=== PATIENT | female | born 1960 | race American Indian/Alaskan Native ===

== ENCOUNTER 2018-11-18 03:44 | Emergency (ER) | payer SELFPAY | END 2018-11-18 08:22 | LOC: ED 03:44 ==

== ENCOUNTER 2021-10-23 22:08 | Emergency (ER) | payer OTHER ==
--- NOTE | 2021-10-23 23:08 | Emergency Department Report ---
ED General Adult HPI - General Chief complaint: Anxiety Stated complaint: CHILLS/COLD Time Seen by Provider: 10/23/21 23:03 Source: patient Mode of arrival: Ambulatory Limitations: No Limitations - History of Present Illness Initial comments: Patient 60-year-old female with history of anxiety and hypothyroidism who presents for chills malaise cough for the past 3 days. States symptoms worsen tonight. Patient denies wheezing there is no dizziness no chest pain no sore throat or ear pain. Patient states she is Covid vaccinated. Symptoms are exacerbated by nothing. Symptoms are relieved by nothing tried. - Related Data Allergies Allergy/AdvReac Type Severity Reaction Status Date / Time ampicillin Allergy Rash Verified 11/18/18 04:38 ED Review of Systems ROS: Stated complaint: CHILLS/COLD Other details as noted in HPI Constitutional: chills, malaise Eyes: denies: eye pain, eye discharge, vision change ENT: denies: ear pain, throat pain Respiratory: cough Cardiovascular: denies: chest pain, palpitations Endocrine: no symptoms reported Gastrointestinal: denies: abdominal pain, nausea, vomiting, diarrhea Genitourinary: denies: urgency, dysuria, discharge Musculoskeletal: denies: back pain, joint swelling, arthralgia Skin: denies: rash, lesions Neurological: denies: headache, weakness, paresthesias, vertigo Psychiatric: anxiety. denies: depression Hematological/Lymphatic: denies: easy bleeding, easy bruising ED Past Medical Hx - Past Medical History Previous Medical History?: No Hx Psychiatric Treatment: Yes (Anxiety) Additional medical history: Thyroid - Surgical History Past Surgical History?: No - Social History Smoking Status: Never Smoker Substance Use Type: Alcohol ED Physical Exam - General Limitations: No Limitations General appearance: alert, anxious - Head Head exam: Present: atraumatic, normocephalic - Eye Eye exam: Present: normal appearance, PERRL, EOMI. Absent: conjunctival injection, nystagmus Pupils: Present: normal accommodation - ENT ENT exam: Present: normal exam, normal orophraynx, mucous membranes moist, TM's normal bilaterally, normal external ear exam - Neck Neck exam: Present: normal inspection, full ROM. Absent: tenderness, meningismus, lymphadenopathy, thyromegaly - Respiratory Respiratory exam: Present: normal lung sounds bilaterally. Absent: respiratory distress, wheezes, stridor, chest wall tenderness - Cardiovascular Cardiovascular Exam: Present: regular rate, normal rhythm, normal heart sounds - GI/Abdominal GI/Abdominal exam: Present: soft, normal bowel sounds. Absent: distended, tenderness, bruit, hernia - Rectal Rectal exam: Present: deferred - Extremities Exam Extremities exam: Present: normal inspection, full ROM, normal capillary refill. Absent: tenderness - Back Exam Back exam: Present: normal inspection, full ROM. Absent: CVA tenderness (R), CVA tenderness (L) - Neurological Exam Neurological exam: Present: alert, CN II-XII intact, normal gait - Expanded Neurological Exam Expanded Patient oriented to: Present: person, place, time Speech: Present: fluid speech Motor strength exam: RUE: 5, LUE: 5, RLE: 5, LLE: 5 Best Eye Response (Lena): (4) open spontaneously Best Motor Response (Elena): (6) obeys commands Best Verbal Response (Lena): (5) oriented Elena Total: 15 - Psychiatric Psychiatric exam: Present: normal affect, normal mood - Skin Skin exam: Present: warm, dry, intact, normal color. Absent: rash ED Course Vital Signs 10/23/21 22:22 Temperature 98.1 F Pulse Rate 66 Respiratory 16 Rate Blood Pressure 136/100 [Left] O2 Sat by Pulse 97 Oximetry ED Medical Decision Making - Lab Data Result diagrams: 10/24/21 00:07 10/24/21 00:07 Labs 10/24/21 10/24/21 10/24/21 00:07 00:07 00:07 WBC 7.4 RBC 4.71 Hgb 12.3 Hct 38.9 MCV 83 MCH 26 L MCHC 32 RDW 14.5 Plt Count 197 Lymph % (Auto) 24.3 [place] % (Auto) 4.8 Eos % (Auto) 1.0 Baso % (Auto) 0.2 Lymph # (Auto) 1.8 [place] # (Auto) 0.4 Eos # (Auto) 0.1 Baso # (Auto) 0.0 Seg Neutrophils % 69.7 Seg Neutrophils # 5.2 Sodium 142 Potassium 4.2 Chloride 108.5 H Carbon Dioxide 23 Anion Gap 15 BUN 15 Creatinine 0.7 Estimated GFR > 60 BUN/Creatinine Ratio 21 Glucose 107 H Calcium 8.7 Total Bilirubin 0.30 AST 15 ALT 18 Alkaline Phosphatase 119 Total Protein 7.5 Albumin 4.2 Albumin/Globulin Ratio 1.3 TSH 1.240 - Radiology Data Radiology results: report reviewed, image reviewed XR chest routine 2V INDICATION / CLINICAL INFORMATION: cough chills. COMPARISON: None available. FINDINGS: SUPPORT DEVICES: None. HEART /PULMONARY VASCULATURE: No significant abnormality. LUNGS / PLEURA: No significant pulmonary or pleural abnormality. No pneumothorax. ADDITIONAL FINDINGS: No significant additional findings. IMPRESSION: 1. No acute findings. Signer Name: Papi Haji MD Signed: 10/23/2021 11:28 PM Workstation Name: [id number] Transcribed By: ENEDINA Dictated By: PAPI HAJI MD Electronically Authenticated By: PAPI HAJI MD Signed Date/Time: 10/23/21 7400 - Medical Decision Making Chest x-ray is normal no opacities no infiltrate. Labs are normal plan DC to home, follow-up with your primary care doctor as needed. Return to emergency should symptoms worsen. Patient verbalized agreement and understanding with discharge plan. Patient DC'd home in stable condition at this time Critical care attestation.: If time is entered above; I have spent that time in minutes in the direct care of this critically ill patient, excluding procedure time. ED Disposition Clinical Impression: Stress Disposition: 01 HOME / SELF CARE / HOMELESS Is pt being admited?: No Does the pt Need Aspirin: No Condition: Stable Additional Instructions: Take all medications as prescribed by your doctor. Follow-up with your doctor in 2 to 3 days. Return to emergency department should symptoms worsen. Referrals: MARJAN MERCEDES MD [Staff Physician] - 3-5 Days Forms: Work/School Release Form(ED) Time of Disposition: 01:12
--- NOTE | 2021-10-23 23:32 | XRay Report ---
XR chest routine 2V INDICATION / CLINICAL INFORMATION: cough chills. COMPARISON: None available. FINDINGS: SUPPORT DEVICES: None. HEART /PULMONARY VASCULATURE: No significant abnormality. LUNGS / PLEURA: No significant pulmonary or pleural abnormality. No pneumothorax. ADDITIONAL FINDINGS: No significant additional findings. IMPRESSION: 1. No acute findings. Signer Name: Dameon Kapoor MD Signed: 10/23/2021 11:28 PM Workstation Name: [id number]
[2021-10-24 00:36] LABS: Basophils % (Auto) 0.2 % (0.0-1.8); Eosinophils # (Auto) 0.1 K/mm3 (0.0-0.4); Hematocrit 38.9 % (30.3-42.9); Hemoglobin 12.3 gm/dl (10.1-14.3); Lymphocytes # (Auto) 1.8 K/mm3 (1.2-5.4); Lymphocytes % (Auto) 24.3 % (13.4-35.0); Mean Corpuscular HGB Conc 32 % (30-34); Mean Corpuscular Volume 83 fl (79-97); Monocytes # (Auto) 0.4 K/mm3 (0.0-0.8); Monocytes % (Auto) 4.8 % (0.0-7.3); Platelet Count 197 K/mm3 (140-440); Red Blood Count 4.71 M/mm3 (3.65-5.03); Red Cell Distribution Width 14.5 % (13.2-15.2)
[2021-10-24 00:49] LABS: Alanine Aminotransferase 18 units/L (7-56); Albumin 4.2 g/dL (3.9-5); Blood Urea Nitrogen 15 mg/dL (7-17); Calcium 8.7 mg/dL (8.4-10.2); Hemolysis Index 11
[2021-10-24 00:58] LABS: BUN/Creatinine Ratio 21
[2021-10-24 02:13] VITALS: BP 151/69
== END 2021-10-24 01:50 | disposition home or self-care (01) ==
LOC: ED 22:08
DX: F43.9 Reaction to severe stress, unspecified (principal); R05.9 Cough, unspecified; R53.81 Other malaise; F41.9 Anxiety disorder, unspecified; Z72.89 Other problems related to lifestyle; Z88.0 Allergy status to penicillin; Z79.899 Other long term (current) drug therapy
CPT/HCPCS: 36415; 71046; 80053; 84443; 85025; 99283